=== PATIENT | female | born 1945 | race Caucasian/White ===

== ENCOUNTER 2020-12-16 13:58 | Outpatient (CLI) | payer MEDICARE ==
--- NOTE | 2020-12-16 14:55 | RAD ---
TWO VIEW CHEST: 12/16/20 INDICATIONS: Shortness of breath. No comparison. FINDINGS: Cardiomegaly with postop sternotomy change. Mild vascular congestion. Coarse interstitial and hazy al veolar infiltrative opacities are seen bilaterally, most pronounced in the upper lungs but also promi nent in the right lower lung. There are bilateral pleural effusions. There is a pleural based opacity in the peripheral right lower chest which could represent some loculated fluid. Pacemaker leads are noted. Degenerative spine changes. IMPRESSION: Cardiomegaly with vascular congestion. Bilateral infiltrates and effusions as described. POS: [facility]
== END 2020-12-16 13:59 | disposition home or self-care (01) ==
LOC: RAD-FRANK 13:58
PROVIDERS: ATTEND Nurse Practitioner Family
DX: R06.02 Shortness of breath (principal); I51.7 Cardiomegaly; R91.8 Other nonspecific abnormal finding of lung field; J90 Pleural effusion, not elsewhere classified; R09.89 Other specified symptoms and signs involving the circulatory and respiratory systems
CPT/HCPCS: 71046

== ENCOUNTER 2022-01-04 10:21 | Outpatient (CLI) | payer MEDICARE | END 2022-01-04 10:22 | disposition home or self-care (01) | LOC: RAD-FRANK 10:21 | PROVIDERS: ATTEND Nurse Practitioner Family | DX: M25.511 Pain in right shoulder (principal); M25.512 Pain in left shoulder ==

== ENCOUNTER 2022-04-15 15:40 | Outpatient (CLI) | payer MEDICARE | END 2022-04-15 15:41 | disposition home or self-care (01) | LOC: BICRAD 15:40 | PROVIDERS: ATTEND Internal Medicine Nephrology | DX: T85.691A Other mechanical complication of intraperitoneal dialysis catheter, initial encounter (principal); R19.01 Right upper quadrant abdominal swelling, mass and lump; I70.90 Unspecified atherosclerosis; Z96.0 Presence of urogenital implants | CPT/HCPCS: 74018 ==

== ENCOUNTER 2022-08-05 13:37 | Outpatient (CLI) | payer MEDICARE | END 2022-08-05 13:38 | disposition home or self-care (01) | LOC: BICRAD 13:37 | PROVIDERS: ATTEND Internal Medicine Nephrology | DX: T85.611D Breakdown (mechanical) of intraperitoneal dialysis catheter, subsequent encounter (principal) | CPT/HCPCS: 74018 ==